=== PATIENT | female | born 1935 | race Caucasian/White ===

== ENCOUNTER → 2019-09-05 10:07 | Outpatient (CLI) | payer MEDICARE, SELFPAY ==
--- NOTE | 2019-09-13 10:29 | P.PFT.S_ITS ---
Pulmonary Function Test Referral & Results Date Patient Seen: 09/05/19 Requesting provider: Julio Cesar Galarza Results: The spirometry demonstrates an FVC of 0.67 L which is 26% of predicted. The FEV1 was measured at 0.62 L which is 33% of predicted. The FEV1/FVC ratio was 92 which is 124% of predicted. No bronchodilator was administered No lung volumes were obtained The diffusing capacity was measured at 7.91 which is 33% of predicted. No hemoglobin value was provided, so no correction for potential anemia could be made, if appropriate. Interpretation: This study demonstrates severe obstructive lung disease with FEV1 of only 620 mL. There is also severe reduction in diffusing capacity suggesting significant disease at the capillary alveolar level to the point where patient may be hyp oxic at times on room air Compared to PFTs performed in May 2016, current study shows further decline in FEV1 which was previously 0.86 L and currently 0.62 L. diffusing capacity is marginally reduced from that previous study as well. Clinical correlation suggested
== END ==
PROVIDERS: PCP Nurse Practitioner Family; Visit Provider Internal Medicine Pulmonary Disease
DX: J84.89 Other specified interstitial pulmonary diseases (principal); Z87.891 Personal history of nicotine dependence
CPT/HCPCS: 94010; 94729

== ENCOUNTER → 2020-02-12 11:08 | Outpatient (CLI) | payer MEDICARE, SELFPAY ==
--- NOTE | 2020-02-18 09:18 | PM.PFT.1 ---
Pulmonary Function Test Referral & Results Date Patient Seen: 02/12/20 Requesting provider: Julio Cesar Galarza Indication: Interstitial lung disease Results: The spirometry demonstrates an FVC of 0.86 L which is 35% of predicted. The FEV1 was measured at 0.75 L which is 41% of predicted. The FEV1/FVC ratio was 87 which is 118% of predicted. No bronchodilator was administered No lung volumes were performed The diffusing capacity was measured at 9.78 which is 41% of predicted. No hemoglobin value was provided, so no correction for potential anemia could be made, if appropriate. Interpretation: This study demonstrates significantly restricted lung volumes with a low FVC and FEV1. The ratio however is greater than expected which suggests rather severe restrictive lung disease. The reduction in diffusing capacity is also consistent with severe restrictive lung disease/interstitial lung disease. Compared to PFTs performed in August 2019, current study shows slight improvement in FEV1 and FVC as well as minimal improvement and diffusing capacity Clinical correlation suggested
== END ==
PROVIDERS: PCP Nurse Practitioner Family; Referring Provider Internal Medicine Pulmonary Disease; Visit Provider Internal Medicine Pulmonary Disease
DX: J84.89 Other specified interstitial pulmonary diseases (principal); Z87.891 Personal history of nicotine dependence
CPT/HCPCS: 94010; 94729